=== PATIENT | male | born 1960 | race Caucasian/White ===

== ENCOUNTER 2017-03-15 10:40 | Emergency (ER) | payer OTHER ==
[~2017-03-15 10:40] MED LIST: ASPIRIN PO; COUMADIN PO; ESCITALOPRAM OX10 MG PO; LASIX PO; LIPITOR PO; LISINOPRIL PO; LOPRESSOR PO; NEXIUM PO; NORVASC PO; PLAVIX PO; TRAMADOL HCL50 M1 PO; [UNRECOGNIZED DRUG - OTHER]
[2017-03-15 12:50] LABS: INR 1.3; PROTHROMBIN TIME (PATIENT) 13.6 SECONDS (9.6-11.5)
== END 2017-03-15 13:13 | disposition home or self-care (01) ==
LOC: CED 10:40
PROVIDERS: Emergency Medicine
DX: S81.011A Laceration without foreign body, right knee, initial encounter (principal); S70.311A Abrasion, right thigh, initial encounter; F17.200 Nicotine dependence, unspecified, uncomplicated; Z79.01 Long term (current) use of anticoagulants; Z79.82 Long term (current) use of aspirin; Z88.5 Allergy status to narcotic agent; Z23 Encounter for immunization; W17.2XXA Fall into hole, initial encounter; Y93.89 Activity, other specified; Y92.69 Other specified industrial and construction area as the place of occurrence of the external cause; Y99.0 Civilian activity done for income or pay
CPT/HCPCS: 12002; 36415; 85610; 90471; 90715; 99283